=== PATIENT | female | born 1990 | race Caucasian/White ===

== ENCOUNTER 2018-04-20 19:49 | Emergency (ER) | payer OTHER | END 2018-04-20 22:17 | disposition home or self-care (01) | LOC: FTE 19:49 | DX: S50.862A Insect bite (nonvenomous) of left forearm, initial encounter (principal); R40.2412 Glasgow coma scale score 13-15, at arrival to emergency department; W57.XXXA Bitten or stung by nonvenomous insect and other nonvenomous arthropods, initial encounter; Y92.9 Unspecified place or not applicable | CPT/HCPCS: 99284 ==